=== PATIENT | male | born 1980 | race Caucasian/White ===

== ENCOUNTER 2016-11-21 20:19 | Emergency (ER) | payer MEDICAID ==
[~2016-11-21] VITALS: Ht 177.8 cm; Wt 82.6 kg
[~2016-11-21 20:19] MED LIST: ALBU8.5H8 INH; BUPR100T7 PO; GABA800T2 PO
[2016-11-21 20:31] VITALS: BP 122/78
[2016-11-21] MEDS ORDERED: KETOROLAC 30 MG/1 ML ONE (22:28)
[2016-11-21] MEDS ORDERED: DIAZEPAM 5 MG TABLET ONE (22:28)
[2016-11-21] MEDS ORDERED: KETOROLAC 30 MG/1 ML IM ONE (22:30)
[2016-11-21] MEDS ORDERED: DIAZEPAM 5 MG TABLET PO ONE (22:30)
[2016-11-21] MEDS ORDERED: ONDANSETRON ODT 4 MG PO ONE (23:30)
[2016-11-21] MEDS ORDERED: HYDROmorphone 1 MG/ML, 1ML ONE (23:30)
[2016-11-21] MEDS ORDERED: ONDANSETRON ODT 4 MG ONE (23:30)
[2016-11-21] MEDS ORDERED: HYDROmorphone 1 MG/ML, 1ML IM ONE (23:30)
== END 2016-11-22 00:14 | disposition home or self-care (01) ==
LOC: ED 11-22 00:08
DX: M54.42 Lumbago with sciatica, left side (principal); J45.909 Unspecified asthma, uncomplicated
CPT/HCPCS: 72110; 72220; 96372; 99284; J1170; J1885; J7512; Q0162